=== PATIENT | female | born 1995 | race Caucasian/White ===

== ENCOUNTER 2017-06-19 05:35 | Emergency (ER) | payer SELFPAY ==
[~2017-06-19] VITALS: Ht 152.4 cm; Wt 68.2 kg
[2017-06-19 06:30] VITALS: Ht 152.4 cm; Wt 68.2 kg
[2017-06-19] MEDS ORDERED: LORAZEPAM 1 MG TAB PO ONE (06:30)
[2017-06-19] MEDS ORDERED: SOD CHLORIDE 0.9% 1,000 ML IV STA (06:38)
[2017-06-19 07:25] LABS: BASOPHIL # 0.1 10^3/ul (0.0-0.1); BASOPHILS % 0.4 % (0.0-2.0); HEMATOCRIT 43.8 % (37.0-47.0); HEMOGLOBIN 14.6 g/dl (12.0-16.0); LYMPHOCYTES # 1.4 10^3/ul (0.8-2.9); LYMPHOCYTES % 8.7 % (15.0-51.0); MEAN CORPUSCULAR HEMOGLOBIN 30.7 pg (29.0-33.0); MEAN CORPUSCULAR HGB CONC 33.3 g/dl (32.0-37.0); MEAN CORPUSCULAR VOLUME 92.2 fl (82.0-101.0); MEAN PLATELET VOLUME 10.8 fl (7.4-10.4); MONOCYTE # 0.8 10^3/ul (0.3-0.9); MONOCYTES % 5.1 % (0.0-11.0); NEUTROPHIL # 13.4 10^3/ul (1.6-7.5); NEUTROPHILS % 85.3 % (39.0-77.0); PLATELET COUNT 301 10^3/UL (140-415); RED BLOOD COUNT 4.75 10^6/ul (4.20-5.40); RED CELL DISTRIBUTION WIDTH 11.1 % (11.5-14.5); WHITE BLOOD COUNT 15.7 10^3/ul (4.8-10.8)
[2017-06-19 07:41] LABS: ALANINE AMINOTRANSFERASE 35 IU/L (13-69); ALBUMIN/GLOBULIN RATIO 1.38; ALKALINE PHOSPHATASE 82 IU/L (42-121); ANION GAP 19 (8-16); ASPARTATE AMINO TRANSFERASE 35 IU/L (15-46); BILIRUBIN,INDIRECT 0.2 mg/dl (0-1.1); BILIRUBIN,TOTAL 0.2 mg/dl (0.2-1.3); BLOOD UREA NITROGEN 13 mg/dl (7-20); CALCIUM 10.3 mg/dl (8.4-10.2); CARBON DIOXIDE 27 mmol/L (21-31); CHLORIDE 105 mmol/L (97-110); CREATININE 0.91 mg/dl (0.44-1.00); GLUCOSE 124 mg/dl (70-220); POTASSIUM 3.9 mmol/L (3.5-5.1); SODIUM 147 mmol/L (135-144); TOTAL PROTEIN 8.6 g/dl (6.1-8.1)
[2017-06-19 07:44] LABS: ACETAMINOPHEN < 10.0 ug/ml (10.0-30.0); ETHANOL < 10.0 mg/dl; SALICYLATE < 1.0 mg/dl (5.0-30.0)
[2017-06-19] MEDS ORDERED: ACETAMINOPHEN 325 MG TAB PO ONE (08:00)
--- NOTE | 2017-06-19 08:01 | PSY ---
Date/Time of Note Date/Time of Note DATE: 06/19/17 TIME: 07:56 Psychiatric Subjective Eval Consent Pt consented to telemedicine: Yes Subjective Evaluation Patient location: emergency Chief Complaint: PT BIB RA for using heroin and Meth 2-3 hours prior to arrival. History of present illness d/w Dr Estrada. 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 Pt was given Ativan 2 mg po due to restlessness caused by meth. Pt is pacing. She admits it was an accidental OD after 3 months of being clean. She denies overt depression, denies SI or HI, denies AH or Vh. Pt is on [place] and trazodone. She has a hx one inpt a few months ago. Pt feels safe about being discharged. Past psychiatric history inpt x1 SA x1 Hospitalization: Suicidal Attempt(s) Medical history Problems Medical Problems: (1) Drug abuse Status: Acute Allergies: Coded Allergies: No Known Allergy (Unverified , 06/19/17) Substance Abuse Substance abuse history: Yes Prior substance abuse treatmen: Yes Social History Marital status: single Level of education: HS DPA/Conservatorship: No Occupation/Intermediate: [employer] Psychiatric Objective Eval Review of Systems: Review of Systems: Not Applicable Physical Examination: Physical Examination: Not Applicable Mental Status Examination: Appearance: Disheveled Eye Contact: Fair Psychomotor Activity: Other Behavior: Cooperative Speech: Clear AFFECT: Appropriate Mood: Appropriate/Full Though Process: Linear Thought Content: Normal Suicidal: No Homicidal: No On 72 hour hold: No Orientation: x4 Cognition: Alert Insight: Intact Judgement: Intact Attention Span: Intact Laboratory Results Laboratory Tests Test 06/19/17 05:39 06/19/17 07:00 Bedside Glucose 147mg/dL White Blood Count 15.710^3/ul Red Blood Count 4.7510^6/ul Hemoglobin 14.6g/dl Hematocrit 43.8% Mean Corpuscular Volume 92.2fl Mean Corpuscular Hemoglobin 30.7pg Mean Corpuscular Hemoglobin Concent 33.3g/dl Red Cell Distribution Width 11.1% Platelet Count 02248^3/UL Mean Platelet Volume 10.8fl Neutrophils % 85.3% Lymphocytes % 8.7% Monocytes % 5.1% Eosinophils % 0.0% Basophils % 0.4% Nucleated Red Blood Cells % 0.0/100WBC Neutrophils # 13.410^3/ul Lymphocytes # 1.410^3/ul Monocytes # 0.810^3/ul Eosinophils # 0.010^3/ul Basophils # 0.110^3/ul Nucleated Red Blood Cells # 0.010^3/ul Sodium Level 147mmol/L Potassium Level 3.9mmol/L Chloride Level 105mmol/L Carbon Dioxide Level 27mmol/L Anion Gap 19 Blood Urea Nitrogen 13mg/dl Creatinine 0.91mg/dl Glucose Level 124mg/dl Calcium Level 10.3mg/dl Total Bilirubin 0.2mg/dl Direct Bilirubin 0.00mg/dl Indirect Bilirubin 0.2mg/dl Aspartate Amino Transf (AST/SGOT) 35IU/L Alanine Aminotransferase (ALT/SGPT) 35IU/L Alkaline Phosphatase 82IU/L Total Protein 8.6g/dl Albumin 5.0g/dl Globulin 3.60g/dl Albumin/Globulin Ratio 1.38 Salicylates Level < 1.0mg/dl Acetaminophen Level < 10.0ug/ml Ethyl Alcohol Level < 10.0mg/dl Assessment and Plan Assessment/Diagnosis [place] I: Amphetamine and opiate intoxication [place] II: defered [place] III: NAD [place] IV: moderate [place] V: [id number] Recommendation/Plan Medication Management PLease consider administering Zyprexa Zydis 5 mg po + Benadryl 50 mg PO x1 for psychomotor agitation Psychotherapy continue outpt program Follow-up/Disposition pt does not present DTS, DTO, GD; pt can be released to her sober living. 5150 Recommendation: ELYSIA CONLEY MD Jun 19, 2017 08:01
--- NOTE | 2017-06-19 08:11 | RADRPT ---
PROCEDURE: XR Chest. CLINICAL INDICATION: chest pain TECHNIQUE: Single frontal view of the chest was obtained COMPARISON: None FINDINGS: The heart and mediastinum are within normal limits. The lungs are clear. There is no pleural effusion or pneumothorax. RPTAT: AA IMPRESSION: No acute disease. .Vinicius Steward MD, Date Time Electronically viewed and signed by .Vinicius Steward MD, on 06/19/2017 08:11 .S/
[2017-06-19] MEDS ORDERED: DIPHENHYDRAMINE 50 MG CAP PO ONE (08:30)
[2017-06-19] MEDS ORDERED: OLANZAPINE (ODT) 5 MG TAB ODT ONE (08:30)
[2017-06-19 09:10] VITALS: BP 128/86; PULSE 102; RESP 16; TEMP 98.6
--- NOTE | 2017-06-19 09:40 | ERD ---
ER Documentation Chief Complaint Chief Complaint PT BIB RA for using heroin and Meth 2-3 hours prior to arrival. HPI Patient is a 21-year-old female with drug abuse who presents with "an overdose on meth". She said that she used methamphetamines 2 hours ago and her friend called 911 from her sober living facility. She also admits to doing heroin 3 hours ago. She said that she feels better now. She denies suicidal or homicidal ideation. She was brought in by ambulance. She does not currently have a primary doctor. ROS All systems reviewed and are negative except as per history of present illness. Allergies Allergies: Coded Allergies: No Known Allergy (Unverified , 06/19/17) PMhx/Soc History of Surgery: No Anesthesia Reaction: No Hx Neurological Disorder: No Hx Respiratory Disorders: No Hx Cardiac Disorders: No Hx Psychiatric Problems: No Hx Miscellaneous Medical Probl: No Hx Alcohol Use: Yes Hx Substance Use: Yes Hx Tobacco Use: Yes Smoking Status: Current every day smoker FmHx Family History: No diabetes Physical Exam Vitals Vital Signs Date Time Temp Pulse Resp B/P Pulse Ox O2 Delivery O2 Flow Rate FiO2 06/19/17 09:10 98.6 102 16 128/86 100 Room Air 06/19/17 06:30 100.7 146 18 123/95 100 06/19/17 05:57 101.5 127 18 152/70 100 Room Air Physical Exam Const: Psychomotor agitation Head: Atraumatic Eyes: Normal Conjunctiva ENT: Normal External Ears, Nose and Mouth. Neck: Full range of motion..~ No meningismus. Resp: Clear to auscultation bilaterally Cardio: Tachycardic rate without murmur Abd: Soft, non tender, non distended. Normal bowel sounds Skin: No petechiae or rashes Back: No midline or flank tenderness Ext: No cyanosis, or edema Neur: Awake and alert Psych: Psychomotor agitation, denies suicidal or homicidal ideation Result Diagram: 06/19/17 0700 06/19/17 0700 Results 24 hrs Laboratory Tests Test 06/19/17 05:39 06/19/17 07:00 Bedside Glucose 147mg/dL White Blood Count 15.710^3/ul Red Blood Count 4.7510^6/ul Hemoglobin 14.6g/dl Hematocrit 43.8% Mean Corpuscular Volume 92.2fl Mean Corpuscular Hemoglobin 30.7pg Mean Corpuscular Hemoglobin Concent 33.3g/dl Red Cell Distribution Width 11.1% Platelet Count 98066^3/UL Mean Platelet Volume 10.8fl Neutrophils % 85.3% Lymphocytes % 8.7% Monocytes % 5.1% Eosinophils % 0.0% Basophils % 0.4% Nucleated Red Blood Cells % 0.0/100WBC Neutrophils # 13.410^3/ul Lymphocytes # 1.410^3/ul Monocytes # 0.810^3/ul Eosinophils # 0.010^3/ul Basophils # 0.110^3/ul Nucleated Red Blood Cells # 0.010^3/ul Sodium Level 147mmol/L Potassium Level 3.9mmol/L Chloride Level 105mmol/L Carbon Dioxide Level 27mmol/L Anion Gap 19 Blood Urea Nitrogen 13mg/dl Creatinine 0.91mg/dl Glucose Level 124mg/dl Calcium Level 10.3mg/dl Total Bilirubin 0.2mg/dl Direct Bilirubin 0.00mg/dl Indirect Bilirubin 0.2mg/dl Aspartate Amino Transf (AST/SGOT) 35IU/L Alanine Aminotransferase (ALT/SGPT) 35IU/L Alkaline Phosphatase 82IU/L Total Protein 8.6g/dl Albumin 5.0g/dl Globulin 3.60g/dl Albumin/Globulin Ratio 1.38 Salicylates Level < 1.0mg/dl Acetaminophen Level < 10.0ug/ml Ethyl Alcohol Level < 10.0mg/dl Current Medications Medications (Trade) Dose Ordered Sig/Shaina Route PRN Reason Start Time Stop Time Status Last Admin Dose Admin Lorazepam 1 mg 1 mg ONCE ONCE PO 06/19/17 06:30 06/19/17 06:31 DC 06/19/17 06:48 Sodium Chloride (NS) 1,000 ml @ 1,000 mls/hr Q1H STAT IV 06/19/17 06:38 06/19/17 07:37 DC 06/19/17 06:59 Acetaminophen (Tylenol Tab) 650 mg ONCE ONCE PO 06/19/17 08:00 06/19/17 08:01 DC 06/19/17 07:57 Olanzapine (Zyprexa Zydis) 5 mg ONCE ONCE ODT 06/19/17 08:30 06/19/17 08:31 DC 06/19/17 08:32 Diphenhydramine HCl (Benadryl) 50 mg ONCE ONCE PO 06/19/17 08:30 06/19/17 08:31 DC 06/19/17 08:32 Procedures/MDM Smoking Cessation Therapy: Pt. was lectured for greater than 3 minutes on the health risks of continued smoking and the benefits of cessation. Chest x-ray negative per radiology. Patient is a 21-year-old female who presents with heroin and methamphetamine abuse. She was found to be febrile which I believe is most likely related to her amphetamine use recently and not true infection. She had laboratory studies which were basically normal other than mildly elevated white blood cell count. Chest x-ray shows no sign of pneumonia. The patient had a psychiatric evaluation by Dr. Fernandez who recommended Zyprexa and Benadryl which were given. She recommended outpatient follow-up and the patient does not meet criteria for 5150 hold. She feels better after Ativan, Zyprexa, and Benadryl and is awake alert and oriented and answering questions appropriately. She is walking without difficulty. The patient will be discharged and can follow-up the local clinics. She was instructed not use illicit drugs in the future. Departure Diagnosis: Primary Impression: Drug abuse Condition: Fair Patient Instructions: Treating Drug Abuse and Addiction Referrals: COMMUNITY CLINICS YOU HAVE RECEIVED A MEDICAL SCREENING EXAM AND THE RESULTS INDICATE THAT YOU DO NOT HAVE A CONDITION THAT REQUIRES URGENT TREATMENT IN THE EMERGENCY DEPARTMENT. FURTHER EVALUATION AND TREATMENT OF YOUR CONDITION CAN WAIT UNTIL YOU ARE SEEN IN YOUR DOCTORS OFFICE WITHIN THE NEXT 1-2 DAYS. IT IS YOUR RESPONSIBILITY TO MAKE AN APPOINTMENT FOR FOLOW-UP CARE. IF YOU HAVE A PRIMARY DOCTOR --you should call your primary doctor and schedule an appointment IF YOU DO NOT HAVE A PRIMARY DOCTOR YOU CAN CALL OUR PHYSICIAN REFERRAL HOTLINE AT IF YOU CAN NOT AFFORD TO SEE A PHYSICIAN YOU CAN CHOSE FROM THE FOLLOWING [facility] [address] [facility] [address] [facility]. [facility] [address] [facility] [address] [facility] [address] [facility]. [facility] [address] Additional Instructions: Call your primary care doctor TOMORROW for an appointment during the next 1-2 days.See the doctor sooner or return here if your condition worsens before your appointment time. JACKIE WHITFIELD MD Jun 19, 2017 09:40
== END 2017-06-19 09:38 | disposition home or self-care (01) ==
LOC: E/R 05:35
DX: F15.10 Other stimulant abuse, uncomplicated (principal); F17.210 Nicotine dependence, cigarettes, uncomplicated; R07.9 Chest pain, unspecified
CPT/HCPCS: 36415; 71010; 80053; 80306; 82962; 85025; 99284; J7030